=== PATIENT | female | born 1970 | race Hispanic/Latino ===

== ENCOUNTER 2020-11-27 09:19 | Inpatient (IN) | payer SELFPAY ==
[~2020-11-27] VITALS: Ht 157.5 cm; Wt 114.7 kg
[2020-11-27 09:53] LABS: BASOPHILS % (AUTO) 0.4 % (0.0-5.0); EOSINOPHILS % (AUTO) 1.3 % (0.0-8.0); HEMATOCRIT 43.4 % (36-48); LYMPHOCYTES % (AUTO) 21.8 % (21.0-51.0); MEAN CORPUSCULAR HEMOGLOBIN 27.3 pg (27.0-33.0); MEAN CORPUSCULAR HGB CONC 31.1 g/dL (32.0-36.0); MEAN CORPUSCULAR VOLUME 87.9 fL (79-99); MONOCYTES % (AUTO) 5.1 % (3.0-13.0); NEUTROPHILS % (AUTO) 70.7 % (40.0-77.0); PLATELET COUNT (AUTO) 241 K/uL (130-400); RED BLOOD CELL COUNT(AUTO) 4.94 MIL/uL (4.00-5.50); RED CELL DISTRIBUTION WIDTH 14.1 % (11.0-15.5); WHITE BLOOD COUNT (AUTO) 12.5 K/uL (4.8-10.8)
[2020-11-27 10:03] LABS: INR 0.95 (0.85-1.15); PROTHROMBIN TIME 10.4 SEC (9.6-11.6)
[2020-11-27 10:05] LABS: CARBON DIOXIDE 28 mmol/L (21-32); CHLORIDE 107 mmol/L (101-111); CREATININE 0.8 mg/dL (0.5-1.5); GLOMERULAR FILTR. RATE CALC 80 mL/min (>60); GLUCOSE,RANDOM 113 mg/dL (70-105); POTASSIUM 3.2 mmol/L (3.5-5.1); SODIUM SERUM 145 mmol/L (136-145); UREA NITROGEN, BLOOD 13 mg/dL (7-18)
[2020-11-27] MEDS ORDERED: ASPIRIN 325 MG TABLET PO SCH (10:13)
[2020-11-27] MEDS ORDERED: ONDANSETRON HCL 4 MG/2 ML VIAL IVP SCH (10:14)
[2020-11-27 10:16] LABS: ALANINE AMINOTRANSFERASE 26 U/L (12-78); ALBUMIN 2.9 g/dL (3.5-5.0); ASPARTATE AMINOTRANSFERASE 17 U/L (10-37); BILIRUBIN,TOTAL 0.3 mg/dL (0.2-1.0); CREATINE KINASE, TOTAL 54 U/L (21-232); MYOGLOBIN 26 ng/mL (10-92); TOTAL PROTEIN, SERUM 7.1 g/dL (6.0-8.3); TROPONIN I < 0.04 ng/mL (0.00-0.06)
[2020-11-27] MEDS: NITROGLYCERIN 0.4 MG SL TAB SL PRN ×3 (10:59→11:23)
[2020-11-27 11:14] VITALS: BP 144/72
[2020-11-27 11:23] VITALS: BP 144/77
[2020-11-27] MEDS ORDERED: POTASSIUM BICARB/CIT AC 25 MEQ TABLET.EFF PO SCH (11:30)
[2020-11-27] MEDS ORDERED: LIDOCAINE HCL-MPF 1% 2ML VIAL IV PRN (12:00)
[2020-11-27] MEDS ORDERED: POTASSIUM CHLORIDE 10% ELIXIR 20 MEQ/15 ML UDCUP PO PRN (12:00)
[2020-11-27] MEDS ORDERED: POTASSIUM CHLORIDE 20 MEQ ERTAB PO PRN (12:00)
[2020-11-27] MEDS ORDERED: LACTULOSE 20 GM/30 ML UDCUP PO PRN (12:00)
[2020-11-27] MEDS ORDERED: ACETAMINOPHEN 325 MG TAB PO PRN (12:00)
[2020-11-27] MEDS ORDERED: POTASSIUM CHLORIDE 10MEQ/100ML 100 ML IV PRN (12:00)
[2020-11-27 12:33] LABS: MAGNESIUM 2.1 mg/dL (1.80-2.40); THYROID STIMULATING HORMONE 4.62 uIU/mL (0.36-3.74)
[2020-11-27] MEDS ORDERED: FENTANYL CITRATE PF 50 MCG/1 ML 2ML VIAL IVP ONE (12:35)
[2020-11-27 12:40] LABS: HEMOGLOBIN A1C 6.5 % (4.0-6.0)
[2020-11-27] MEDS: NITROGLYCERIN 1GM/1 INCH PACKET TD SCH ×2 (13:01→21:52)
[2020-11-27 13:03] LABS: APPEARANCE,URINE Clear (CLEAR); BILIRUBIN,URINE Negative (NEGATIVE); COLOR,URINE Yellow (YELLOW); GLUCOSE, URINE (UA) Negative (NEGATIVE); KETONES,URINE Negative (NEGATIVE); LEUKOCYTE ESTERASE ,URINE Negative (NEGATIVE); NITRATE,URINE Negative (NEGATIVE); OCCULT BLOOD,URINE Small (NEGATIVE); PROTEIN,URINE Negative (NEGATIVE); UROBILINOGEN,URINE 0.2 mg/dL (0.2-1.0)
[2020-11-27 13:10] LABS: AMPHET/METH SCREEN,URINE NEGATIVE (NEGATIVE); BARBITURATE SCREEN, URINE POSITIVE (NEGATIVE); BENZODIAZEPINES SCREEN,URINE NEGATIVE (NEGATIVE); CANNABINOID SCREEN,URINE NEGATIVE (NEGATIVE); COCAINE SCREEN,URINE NEGATIVE (NEGATIVE); OPIATE SCREEN,URINE NEGATIVE (NEGATIVE); PHENCYCLIDINE SCREEN,URINE NEGATIVE (NEGATIVE)
[2020-11-27 13:13] LABS: BACTERIA,URINE Rare /HPF (None Seen); RBC,URINE 0-1 /HPF (0-1); SQUAMOUS EPITHELIAL CELL,UR Few /HPF (0-2); WBC,URINE 0-1 /HPF (0-1)
[2020-11-27] MEDS: TRAMADOL HCL 50 MG TABLET PO SCH ×2 (15:37→21:53)
[2020-11-27] MEDS: INSULIN HUMULIN R 100 UNIT/ML 3ML SQ SCH ×2 (16:30→21:00)
[2020-11-27 17:35] VITALS: BP 132/82
[2020-11-27] MEDS: ACETAMINOPHEN 325 MG TAB PO PRN (18:40)
[2020-11-27] MEDS: HYDROMORPHONE 0.5 MG SYG (0.5MG/0.5ML) IVP PRN (19:02)
[2020-11-27 19:15] VITALS: BP 120/70
[2020-11-27] MEDS: METOPROLOL TARTRATE 25 MG TAB PO SCH (21:45)
[2020-11-27] MEDS: FAMOTIDINE 20MG TAB 20 MG TAB PO SCH (21:45)
[2020-11-28] VITALS (7 sets, daily range): BP systolic 127–155; BP diastolic 69–86
[2020-11-28] MEDS: HYDROMORPHONE 0.5 MG SYG (0.5MG/0.5ML) IVP PRN (01:03)
[2020-11-28] MEDS: ONDANSETRON HCL 4 MG/2 ML VIAL IV PRN (02:01)
[2020-11-28] MEDS: TRAMADOL HCL 50 MG TABLET PO SCH ×3 (04:47→22:00)
[2020-11-28] MEDS: NITROGLYCERIN 1GM/1 INCH PACKET TD SCH ×3 (04:47→20:27)
[2020-11-28 05:56] LABS: BASOPHILS % (AUTO) 0.3 % (0.0-5.0); HEMATOCRIT 40.6 % (36-48); LYMPHOCYTES % (AUTO) 12.9 % (21.0-51.0); MEAN CORPUSCULAR HEMOGLOBIN 28.4 pg (27.0-33.0); MEAN CORPUSCULAR HGB CONC 31.8 g/dL (32.0-36.0); MEAN CORPUSCULAR VOLUME 89.2 fL (79-99); MONOCYTES % (AUTO) 3.1 % (3.0-13.0); NEUTROPHILS % (AUTO) 83.2 % (40.0-77.0); PLATELET COUNT (AUTO) 249 K/uL (130-400); RED BLOOD CELL COUNT(AUTO) 4.55 MIL/uL (4.00-5.50); WHITE BLOOD COUNT (AUTO) 11.6 K/uL (4.8-10.8)
[2020-11-28 06:04] LABS: CREATININE 0.7 mg/dL (0.5-1.5); POTASSIUM 3.8 mmol/L (3.5-5.1)
[2020-11-28] MEDS ORDERED: ASPIRIN 81MG TAB.CHEW ONE (09:20)
[2020-11-28] MEDS: ENOXAPARIN SODIUM 40 MG/0.4 ML SYRINGE SQ SCH (09:29)
[2020-11-28] MEDS: ASPIRIN 325 MG TABLET PO SCH (09:29)
[2020-11-28] MEDS: ACETAMINOPHEN 325 MG TAB PO PRN (09:30)
[2020-11-28 09:43] LABS: CREATINE KINASE, TOTAL 42 U/L (21-232); MYOGLOBIN 42 ng/mL (10-92); TROPONIN I < 0.04 ng/mL (0.00-0.06)
[2020-11-28] MEDS ORDERED: IOHEXOL-350 75 ML VIAL IV ONE (16:24)
[2020-11-28] MEDS ORDERED: LOSA25TA41 PO (19:12)
[2020-11-28] MEDS ORDERED: ALBU8.5H8 IH (19:12)
[2020-11-28] MEDS ORDERED: ESOM40CA PO (19:12)
[2020-11-28] MEDS ORDERED: SIMV40TA59 PO (19:12)
[2020-11-28] MEDS ORDERED: CORTSOL OT (19:12)
[2020-11-28] MEDS ORDERED: NAPR-1023 PO (19:12)
[2020-11-28] MEDS ORDERED: FLUT25PO3 MC (19:12)
[2020-11-28] MEDS: METOPROLOL TARTRATE 25 MG TAB PO SCH ×2 (19:17→21:00)
[2020-11-28] MEDS: FAMOTIDINE 20MG TAB 20 MG TAB PO SCH (20:26)
[2020-11-28] MEDS: INSULIN HUMULIN R 100 UNIT/ML 3ML SQ SCH (20:32)
[2020-11-29] VITALS: BP 119/69
[2020-11-29] MEDS: TRAMADOL HCL 50 MG TABLET PO SCH ×4 (03:53→21:45)
[2020-11-29] MEDS: NITROGLYCERIN 1GM/1 INCH PACKET TD SCH (03:53)
[2020-11-29 04:00] VITALS: BP 123/76
[2020-11-29 04:17] LABS: BASOPHILS % (AUTO) 0.4 % (0.0-5.0); EOSINOPHILS % (AUTO) 0.4 % (0.0-8.0); HEMATOCRIT 41.2 % (36-48); LYMPHOCYTES % (AUTO) 23.7 % (21.0-51.0); MEAN CORPUSCULAR HEMOGLOBIN 27.5 pg (27.0-33.0); MEAN CORPUSCULAR HGB CONC 31.6 g/dL (32.0-36.0); MEAN CORPUSCULAR VOLUME 87.3 fL (79-99); NEUTROPHILS % (AUTO) 69.6 % (40.0-77.0); PLATELET COUNT (AUTO) 268 K/uL (130-400); RED BLOOD CELL COUNT(AUTO) 4.72 MIL/uL (4.00-5.50); RED CELL DISTRIBUTION WIDTH 14.2 % (11.0-15.5); WHITE BLOOD COUNT (AUTO) 16.1 K/uL (4.8-10.8)
[2020-11-29 04:31] LABS: CREATININE 0.8 mg/dL (0.5-1.5)
[2020-11-29 07:19] VITALS: BP 127/89
[2020-11-29] MEDS: INSULIN HUMULIN R 100 UNIT/ML 3ML SQ SCH ×4 (07:30→20:34)
[2020-11-29] MEDS: ONDANSETRON HCL 4 MG/2 ML VIAL IV PRN (08:23)
[2020-11-29] MEDS: METOPROLOL TARTRATE 25 MG TAB PO SCH ×2 (09:12→20:32)
[2020-11-29] MEDS: ENOXAPARIN SODIUM 40 MG/0.4 ML SYRINGE SQ SCH (09:14)
[2020-11-29] MEDS: ASPIRIN 325 MG TABLET PO SCH (09:14)
[2020-11-29] MEDS: FAMOTIDINE 20MG TAB 20 MG TAB PO SCH ×2 (09:14→20:32)
[2020-11-29] MEDS: LOSARTAN 25 MG TABLET PO SCH (10:41)
[2020-11-29 11:03] VITALS: BP 123/72
[2020-11-29] MEDS ORDERED: REGADENOSON 0.4 MG/5 ML PF SYG IVP SCH (11:30)
[2020-11-29 15:33] VITALS: BP 151/80
[2020-11-29 20:00] VITALS: BP 103/53
[2020-11-29] MEDS ORDERED: SIMVASTATIN 20 MG TABLET PO SCH (21:00)
[2020-11-30] VITALS: BP 108/61
[2020-11-30 04:00] VITALS: BP 123/77
[2020-11-30] MEDS: TRAMADOL HCL 50 MG TABLET PO SCH (04:00)
[2020-11-30 05:33] LABS: BASOPHILS % (AUTO) 0.5 % (0.0-5.0); EOSINOPHILS % (AUTO) 0.9 % (0.0-8.0); HEMATOCRIT 38.6 % (36-48); LYMPHOCYTES % (AUTO) 30.9 % (21.0-51.0); MEAN CORPUSCULAR HEMOGLOBIN 27.4 pg (27.0-33.0); MEAN CORPUSCULAR HGB CONC 31.1 g/dL (32.0-36.0); MEAN CORPUSCULAR VOLUME 88.1 fL (79-99); MONOCYTES % (AUTO) 6.8 % (3.0-13.0); NEUTROPHILS % (AUTO) 59.7 % (40.0-77.0); PLATELET COUNT (AUTO) 229 K/uL (130-400); RED BLOOD CELL COUNT(AUTO) 4.38 MIL/uL (4.00-5.50); RED CELL DISTRIBUTION WIDTH 14.6 % (11.0-15.5); WHITE BLOOD COUNT (AUTO) 13.3 K/uL (4.8-10.8)
[2020-11-30 05:35] LABS: CREATININE 0.9 mg/dL (0.5-1.5); POTASSIUM 3.3 mmol/L (3.5-5.1)
[2020-11-30] MEDS: INSULIN HUMULIN R 100 UNIT/ML 3ML SQ SCH (06:12)
[2020-11-30] MEDS ORDERED: METO25 PO (08:14)
[2020-11-30] MEDS ORDERED: ASPI-1012 PO (08:15)
[2020-11-30] MEDS ORDERED: POTASSIUM CHLORIDE 20 MEQ ERTAB PO SCH (08:15)
[2020-11-30] MEDS: FAMOTIDINE 20MG TAB 20 MG TAB PO SCH (08:25)
[2020-11-30] MEDS: ASPIRIN 325 MG TABLET PO SCH (08:25)
[2020-11-30] MEDS: LOSARTAN 25 MG TABLET PO SCH (08:25)
[2020-11-30] MEDS: METOPROLOL TARTRATE 25 MG TAB PO SCH (08:25)
[2020-11-30] MEDS: ENOXAPARIN SODIUM 40 MG/0.4 ML SYRINGE SQ SCH (08:26)
[2020-11-30 08:53] VITALS: BP 108/78
== END 2020-11-30 09:55 | disposition home or self-care (01) | DRG 607 ==
LOC: EDH 09:19 → OBSVTOIN 09:20 → EDHIP 09:20 → 4BH 11-28 08:39
PROVIDERS: ADMIT Family Medicine; ATTEND Family Medicine
DX: R61 Generalized hyperhidrosis (principal); Z68.42 Body mass index [BMI] 45.0-49.9, adult; R07.89 Other chest pain; E78.5 Hyperlipidemia, unspecified; E11.9 Type 2 diabetes mellitus without complications; I10 Essential (primary) hypertension; E87.6 Hypokalemia; D72.829 Elevated white blood cell count, unspecified; E66.9 Obesity, unspecified; H66.90 Otitis media, unspecified, unspecified ear; Z88.0 Allergy status to penicillin; Z88.5 Allergy status to narcotic agent; Z87.891 Personal history of nicotine dependence; Z79.899 Other long term (current) drug therapy
CPT/HCPCS: 36415; 71045; 71275; 78452; 80048; 80053; 80061; 80305; 81001; 82550; 82948; 83036; 83735; 83874; 83880; 84443; 84484; 85025; 85378; 85610; 87088; 93005; 93017; 96374; A9500; G0378; J1170; J1650; J2405; J2785; J3010; Q9967

== ENCOUNTER 2021-05-04 14:03 | Emergency (ER) | payer OTHER ==
[~2021-05-04] VITALS: Ht 157.5 cm; Wt 121.1 kg
[~2021-05-04 14:03] MED LIST: ALBU8.5H8 IH; ASPI-1012 PO; CORTSOL OT; ESOM40CA PO; FLUT25PO3 MC; LOSA25TA41 PO; METO25 PO; NAPR-1023 PO; SIMV40TA59 PO
[2021-05-04] MEDS ORDERED: KETOROLAC 60 MG VIAL (30MG/ML) IM ONE (15:30)
[2021-05-04] MEDS ORDERED: HYDROCODONE/ACETAMINOPHEN 5/325 MG TAB PO ONE (15:30)
[2021-05-04] MEDS ORDERED: ACET-2247 PO (16:30)
[2021-05-04 16:44] VITALS: BP 140/82
== END 2021-05-04 16:47 | disposition home or self-care (01) ==
LOC: EDH 14:03
DX: M25.511 Pain in right shoulder (principal); I10 Essential (primary) hypertension; K21.9 Gastro-esophageal reflux disease without esophagitis; F32.9 Major depressive disorder, single episode, unspecified; E11.9 Type 2 diabetes mellitus without complications; E78.00 Pure hypercholesterolemia, unspecified; Z88.0 Allergy status to penicillin; Z88.6 Allergy status to analgesic agent
CPT/HCPCS: 73030; 96372; 99283; J1885

== ENCOUNTER 2022-01-16 15:45 | Emergency (ER) | payer OTHER ==
[~2022-01-16] VITALS: Ht 157.5 cm; Wt 127.0 kg
[~2022-01-16 15:45] MED LIST changes: +ACET-2247 PO
[2022-01-16 16:07] LABS: BASOPHILS % (AUTO) 0.4 % (0.0-5.0); EOSINOPHILS % (AUTO) 2.3 % (0.0-8.0); HEMATOCRIT 43.1 % (36-48); LYMPHOCYTES % (AUTO) 28.5 % (21.0-51.0); MEAN CORPUSCULAR HGB CONC 33.2 g/dL (32.0-36.0); MEAN CORPUSCULAR VOLUME 87.4 fL (79-99); MONOCYTES % (AUTO) 7.3 % (3.0-13.0); NEUTROPHILS % (AUTO) 61.2 % (40.0-77.0); PLATELET COUNT (AUTO) 190 K/uL (130-400); RED BLOOD CELL COUNT(AUTO) 4.93 MIL/uL (4.00-5.50); RED CELL DISTRIBUTION WIDTH 14.7 % (11.0-15.5); WHITE BLOOD COUNT (AUTO) 7.7 K/uL (4.8-10.8)
[2022-01-16 16:17] LABS: CREATININE 0.8 mg/dL (0.5-1.5); POTASSIUM 3.9 mmol/L (3.5-5.1)
[2022-01-16 16:25] LABS: ALBUMIN 3.4 g/dL (3.5-5.0); TOTAL PROTEIN, SERUM 6.9 g/dL (6.0-8.3)
[2022-01-16] MEDS ORDERED: NIFEDIPINE 10 MG CAP PO ONE (16:30)
[2022-01-16] MEDS ORDERED: NIFEDIPINE 10 MG CAP ONE (16:47)
[2022-01-16 16:54] LABS: APPEARANCE,URINE CLEAR (CLEAR); BILIRUBIN,URINE NEGATIVE (NEGATIVE); COLOR,URINE YELLOW (YELLOW); GLUCOSE, URINE (UA) NEGATIVE (NEGATIVE); KETONES,URINE NEGATIVE (NEGATIVE); LEUKOCYTE ESTERASE ,URINE NEGATIVE (NEGATIVE); NITRATE,URINE NEGATIVE (NEGATIVE); OCCULT BLOOD,URINE SMALL (NEGATIVE); PH,URINE 6.5 (5.0-8.0); PROTEIN,URINE NEGATIVE (NEGATIVE); UROBILINOGEN,URINE 0.2 mg/dL (0.2-1.0)
[2022-01-16] MEDS ORDERED: 0.9%NACL 1000ML 1,000 ML IV SCH (17:00)
[2022-01-16 17:02] LABS: BACTERIA,URINE Rare /HPF (None Seen); RBC,URINE None Seen /HPF (0-1); SQUAMOUS EPITHELIAL CELL,UR 0-2 /HPF (0-2); WBC,URINE 0-1 /HPF (0-1)
[2022-01-16 17:25] VITALS: BP 146/85
== END 2022-01-16 17:58 | disposition home or self-care (01) ==
LOC: EDH 15:45
DX: I95.1 Orthostatic hypotension (principal); E86.0 Dehydration; I10 Essential (primary) hypertension; E66.01 Morbid (severe) obesity due to excess calories; Z68.43 Body mass index [BMI] 50.0-59.9, adult; Z20.822 Contact with and (suspected) exposure to COVID-19; F32.A Depression, unspecified; E11.9 Type 2 diabetes mellitus without complications; K21.9 Gastro-esophageal reflux disease without esophagitis; E78.00 Pure hypercholesterolemia, unspecified; Z88.0 Allergy status to penicillin; Z79.82 Long term (current) use of aspirin; Z79.899 Other long term (current) drug therapy; Z88.6 Allergy status to analgesic agent; Z98.890 Other specified postprocedural states
CPT/HCPCS: 99285; 96360; 71045; 87635; 84484; 80053; 85025; 87804 ×2; 81001; 36415; 93005; C9803; J7030